=== PATIENT | female | born 1940 | race African-American/Black ===

== ENCOUNTER → 2017-01-23 | Outpatient (CLI) | payer OTHER ==
[~2017-01-23] VITALS: Ht 160 cm; Wt 82.6 kg
[~2017-01-23] MED LIST: ACCUPRIL40 MG PO; APAP W/CODEINE1 TA2 PO; APAP W/CODEINE1 TA3 PO; AVELOX 400 MG400 MG PO; BACTRIM DS TAB1 EACH PO; CARAFATE 1 GM TA1 G1 PO; CARAFATE 1 GM TA1 GM PO; CARVEDILOL25 MG PO; COREG PO; CYCLOBENZAPRINE10 MG PO; DEXILANT60 MG PO; DIAZEPAM 10 MG10 M1 OR; FLEET ENEMA118 ML RC; FLONASE 0.05%50 MCG; GLIPIZIDE 10 MG10 M1 PO; GLIPIZIDE ER10 MG PO; GLIPIZIDE XL10 MG PO; GLUCOPHAGE500 MG PO; HYDROCHLOROTH12.5 MG PO; HYDROCHLOROTHIA25 M1 PO; KAPIDEX60 MG PO; LANTUS SUBQ; LEVEMIR100 UNIT/1 PO; LIPITOR80 MG PO; METFORMIN; METFORMIN 500500 MG PO; NAPROSYN500 MG PO; NORFLEX100 MG PO; NORVASC 5 MG TAB5 MG PO; PLAVIX 75 MG TA75 MG PO; PREVACID 30MG C30 M1 PO; QUINAPRIL 20 MG20 MG PO; SINGULAIR 10 MG10 M1 PO; SYNTHROID150 MCG PO; SYNTHROID175 MCG PO; ULTRAM 50MG TAB50 MG PO; ZOFRAN ODT4 MG PO
--- NOTE | ~2017-01-23 | P ---
[facility] [place] [address] PROCEDURE REPORT Name: SARAH CRUM Room #: REG [facility]#: [id number] Admission: 01/23/17 Attend Phys: Cuauhtemoc Kebede MD Discharge: Date of : 42 Report #: [id number] THIS REPORT FOR: //name// CC: JOSE Kebede DATE OF SERVICE: 01/23/2017 BRIEF HISTORY: The patient is a 76-year-old woman who developed increasing reflux symptoms. PREOPERATIVE DIAGNOSIS: Worsening reflux. POSTOPERATIVE DIAGNOSIS: Mild gastritis, questionably atrophic. MEDICATIONS: Deep sedation with propofol per anesthesia. SPECIMEN: Biopsies of gastritis. ESTIMATED BLOOD LOSS: 3 mL. PROCEDURE: EGD with biopsy. FINDINGS: Prior to propofol sedation, this procedure of upper endoscopy was discussed with the patient as well as potential risks and its complications. She indicates she understands and desires to proceed. DESCRIPTION OF PROCEDURE: With the patient in left lateral decubitus position, [employer] video endoscope was inserted in the cervical esophagus under direct vision without difficulty. Examination of this organ through its entire length revealed normal esophageal mucosa down the squamocolumnar junction. The squamocolumnar junction was inspected and noted to be unremarkable. No evidence of ulcers, erosions or mass lesions. A significant hiatus hernia was not seen. There was no evidence of Mishra mucosa. I did not see evidence of esophagitis. Scope was advanced in the stomach, was examined on end view as well as retroflexed views. There was streaky erythema in the antrum. The mucosa of the proximal stomach looked thin raising possibility of atrophic gastritis and multiple biopsies were obtained. No mass lesions were seen. The cardia was inspected in the retroflexed position and no abnormalities were seen. The pylorus, duodenal bulb and postbulbar sweep were inspected and noted to be within normal limits. At that point, the scope was slowly withdrawn and careful circumferential views confirmed the above findings. The patient tolerated the procedure well. CONDITION OF THE PATIENT UPON DISCHARGE: Following procedure, the patient [address] [address] PROCEDURE REPORT Name: SARAH CRUM [id number] Admission: 01/23/17 Attend Phys: Cuauhtemoc Kebede MD Discharge: Date of : 42 Report #: [id number] drowsy and prepared for colonoscopy. INSTRUCTIONS TO THE PATIENT AND FAMILY AT THE TIME OF DISCHARGE: We will follow up on path and make further recommendations as needed. At this point in time, we will treat her for reflux and have her use omeprazole 20 mg daily as needed for control of reflux. At this point in time, we will proceed with colonoscopy. <ELECTRONICALLY SIGNED> By: Cuauhtemoc Kebede MD 01/23/17 1714 [id number] 1500 Cuauhteomc Kebede MD /nt
--- NOTE | ~2017-01-23 | P ---
[facility] [place] [address] PROCEDURE REPORT Name: SARAH CRUM Room #: REG [facility]#: [id number] Admission: 01/23/17 Attend Phys: Cuauhtemoc Kebede MD Discharge: Date of : 42 Report #: [id number] THIS REPORT FOR: //name// CC: JOSE Kebede BRIEF HISTORY: The patient is a 76-year-old woman with history of colon polyps. Last exam was limited due to a very tortuous redundant colon. PREOPERATIVE DIAGNOSIS: High-risk screening, history of colon polyps. POSTOPERATIVE DIAGNOSIS: A 5 mm polyp at 70 cm. ESTIMATED BLOOD LOSS: 3 mL. PROCEDURE: Colonoscopy to cecum and terminal ileum with snare polypectomy. FINDINGS: Prior to propofol sedation, procedure of colonoscopy discussed with the patient as well as potential risks, benefit, and complications. She indicates she understands and desires to proceed. With the patient in the left lateral decubitus position, digital examination was completed, which revealed no abnormalities. Subsequently, the [employer] video colonoscope was introduced in the rectum, advanced under direct vision to the cecum. It was done with some difficulties. She does have a tortuous redundant colon; however, the cecum was reached, identified by the ileocecal valve and the appendiceal orifice. I could see the ileocecal valve, the colon was redundant and there was tremendous ____ scope, so we could not cross the ileocecal valve. At that point, the scope was slowly withdrawn and careful circumferential views obtained. There were some limitations of prep with multiple pools of liquidy material. However, we were able to wash and aspirate most of this material away and overall reasonably good prep was obtained. Other than the fact that she had a redundant colon, no abnormalities were noted until about 70 cm upon withdrawal, at which point a 5 mm sessile polyp was seen and removed by cold snare polypectomy and recovered. Scope was further withdrawn and no additional polyps were seen. No additional abnormalities were seen. Scope was withdrawn in the rectum. Upon retroflexion, no abnormalities were seen. Scope was withdrawn. The patient tolerated the procedure well. CONDITION OF THE PATIENT UPON DISCHARGE: Following procedure, the patient drowsy, aroused, conversant and will be discharged home when fully ambulatory. INSTRUCTIONS TO THE PATIENT AND FAMILY AT THE TIME OF DISCHARGE: Polyp removed as described, we will follow up on path. However, at this point in life, there is not likely much benefit from continued routine colonoscopy. Certainly, if there is some specific problem, colonoscopy can be entertained at that time. [address] [address] PROCEDURE REPORT Name: SARAH CRUM Enrique Room #: REG [facility]#: [id number] Admission: 01/23/17 Attend Phys: Cuauhtemoc Kebede MD Discharge: Date of : 42 Report #: [id number] Last colonoscopy was 2 years ago and repeat at this time due limitations in view and difficult colon previously in view of her history of colon polyps. Withdrawal time from the cecum was 18 minutes. <ELECTRONICALLY SIGNED> By: Cuauhtemoc Kebede MD 01/26/17 1538 1341 [id number] Cuauhtemoc Kebede MD /nt
== END | disposition home or self-care (01) ==
LOC: GI 01-08 13:17
DX: K29.70 Gastritis, unspecified, without bleeding (principal); I10 Essential (primary) hypertension; K21.9 Gastro-esophageal reflux disease without esophagitis; E11.9 Type 2 diabetes mellitus without complications; E78.5 Hyperlipidemia, unspecified; E03.9 Hypothyroidism, unspecified; D53.9 Nutritional anemia, unspecified; Z90.49 Acquired absence of other specified parts of digestive tract; Z87.891 Personal history of nicotine dependence; Z98.890 Other specified postprocedural states
CPT/HCPCS: 62110; 62900

== ENCOUNTER → 2017-09-07 | Outpatient (CLI) | payer OTHER | LOC: RAD 08-25 01:44 | DX: Z12.31 Encounter for screening mammogram for malignant neoplasm of breast (principal) ==